=== PATIENT | male | born 1980 ===

== ENCOUNTER 2017-02-01 13:39 | Observation (INO) ==
[2017-02-01] MEDS ORDERED: ONDANSETRON 4 MG/2 ML VIAL IV PRN (17:16)
[2017-02-01] MEDS ORDERED: ZALEPLON 5 MG CAPSULE PO PRN (17:16)
[2017-02-01] MEDS ORDERED: ACETAMINOPHEN 325 MG TABLET PO PRN (17:16)
[2017-02-01] MEDS: FUROSEMIDE 40 MG/4 ML VIAL IV SCH (17:47)
[2017-02-01] MEDS: ENOXAPARIN 40 MG/0.4 ML SYRINGE SUBCUT SCH (17:47)
[2017-02-01 22:28] LABS: Troponin I Only 0.404 NG/ML (0.00-0.045)
[2017-02-02 03:06] LABS: Albumin 3.6 G/DL (3.4-5.0); Bilirubin,Total 1.2 MG/DL (0.2-1.0); Magnesium 1.8 MG/DL (1.8-2.4); Osmolality,Calculated 282.3 MOS/KG (273-304); Risk Ratio 4.41; Thyroid Stimulating Hormone 5.58 uIU/ml (0.358-3.74); Total Protein 7.1 G/DL (6.4-8.3)
[2017-02-02] MEDS: FUROSEMIDE 40 MG/4 ML VIAL IV SCH ×2 (09:15→17:10)
[2017-02-02] MEDS: PANTOPRAZOLE 40 MG TABLET PO SCH (09:18)
[2017-02-02] MEDS: ASPIRIN EC 81 MG TABLET PO SCH (09:18)
[2017-02-02] MEDS: LISINOPRIL 2.5 MG TABLET PO SCH (12:45)
[2017-02-02] MEDS: CARVEDILOL 3.125 MG TABLET PO SCH ×2 (12:49→21:29)
[2017-02-02] MEDS ORDERED: DIAZEPAM 5 MG TABLET PO ONE (15:31)
[2017-02-02] MEDS ORDERED: MAGNESIUM SULF RIDER 2 GM in PREMIX 1 EACH IV PRN (15:31)
[2017-02-02] MEDS ORDERED: diphenhydrAMINE CAP 25 MG CAPSULE PO ONE (15:31)
[2017-02-02] MEDS: ENOXAPARIN 40 MG/0.4 ML SYRINGE SUBCUT SCH (17:10)
[2017-02-02] MEDS: ATORVASTATIN 40 MG TABLET PO SCH (21:29)
[2017-02-03] MEDS: SODIUM CHLORIDE 0.9% 1,000 ML IV SCH ×2 (05:15→17:10)
[2017-02-03] MEDS: LEVOTHYROXINE 25 MCG TABLET PO SCH (06:02)
[2017-02-03 06:43] LABS: Basophils % 0.4 % (0.0-0.8); Eosinophils # 0.7 10*3/uL (0.0-0.87); Eosinophils % 5.9 % (0.00-10.9); Hematocrit 46.1 VOL% (42.0-52.0); Hemoglobin 15.9 GM/DL (14.0-18.0); Immature Granulocytes % 0.4 %; Immature Granulocytes Absolute 0.04 #; Lymphocytes # 2.4 10*3/uL (1.4-4.0); Lymphocytes % 21.7 % (21.2-54.2); Mean Corpuscular HGB Conc 34.5 GM/DL (32-36); Mean Corpuscular Hemoglobin 32 PG (27-34); Mean Corpuscular Volume 92.9 FL (87-102); Mean Platelet Volume 9.4 FL (9.6-12.0); Monocytes # 0.8 10*3/uL (0.11-0.8); Monocytes % 7.1 % (1.7-12.7); Neutrophils # 7.1 10*3/uL (1.4-7.4); Neutrophils % 64.5 % (38.7-73.9); Platelet Count 290 T/CUMM (130-400); Red Blood Count 4.96 MC/CUMM (3.8-5.5); Red Cell Distribution Width 13.3 % (9.3-17.3)
[2017-02-03 06:50] LABS: INR 1.1; PT Patient Result 11.3 SECS
[2017-02-03 07:22] LABS: Calcium 8.7 MG/DL (8.5-10.1); Osmolality,Calculated 279.5 MOS/KG (273-304); Potassium 3.7 MMOL/L (3.5-5.1)
[2017-02-03] MEDS ORDERED: LIDOCAINE 1% 20 ML VIAL ONE (07:56)
[2017-02-03] MEDS ORDERED: HEPARIN/NACL 0.9% 2 UNITS/ML 1,000 ML IV ONE (07:56)
[2017-02-03] MEDS: CARVEDILOL 3.125 MG TABLET PO SCH ×2 (08:01→20:07)
[2017-02-03] MEDS: PANTOPRAZOLE 40 MG TABLET PO SCH (08:01)
[2017-02-03] MEDS: LISINOPRIL 2.5 MG TABLET PO SCH (08:01)
[2017-02-03] MEDS: ASPIRIN EC 81 MG TABLET PO SCH (08:01)
[2017-02-03] MEDS ORDERED: MIDAZOLAM 2 MG/2 ML VIAL ONE (08:21)
[2017-02-03] MEDS ORDERED: HYDROmorphone 2 MG/1 ML VIAL ONE (08:21)
[2017-02-03] MEDS ORDERED: diphenhydrAMINE CAP 25 MG CAPSULE PO ONE (08:30)
[2017-02-03] MEDS ORDERED: DIAZEPAM 5 MG TABLET PO ONE (08:30)
[2017-02-03] MEDS: FUROSEMIDE 40 MG/4 ML VIAL IV SCH ×2 (09:50→17:01)
[2017-02-03] MEDS: ENOXAPARIN 40 MG/0.4 ML SYRINGE SUBCUT SCH (17:10)
[2017-02-03] MEDS: ATORVASTATIN 40 MG TABLET PO SCH (20:07)
[2017-02-04] MEDS: LEVOTHYROXINE 25 MCG TABLET PO SCH (05:49)
[2017-02-04] MEDS: SODIUM CHLORIDE 0.9% 1,000 ML IV SCH (05:50)
[2017-02-04 06:00] LABS: Calcium 6.1 MG/DL (8.5-10.1); Potassium 2.9 MMOL/L (3.5-5.1)
[2017-02-04] MEDS: POTASSIUM CHLORIDE RIDER 10 MEQ in PREMIX 1 EACH IV PRN ×2 (06:27→08:51)
[2017-02-04] MEDS ORDERED: POTASSIUM CHLORIDE 20 MEQ TABLET PO ONE ×2 (07:55→10:51)
[2017-02-04] MEDS: CARVEDILOL 3.125 MG TABLET PO SCH (08:50)
[2017-02-04] MEDS: LISINOPRIL 2.5 MG TABLET PO SCH (08:50)
[2017-02-04] MEDS: ASPIRIN EC 81 MG TABLET PO SCH (08:50)
[2017-02-04] MEDS: PANTOPRAZOLE 40 MG TABLET PO SCH (08:50)
[2017-02-04] MEDS ORDERED: FUROSEMIDE 40 MG TABLET PO SCH (09:00)
[2017-02-04 11:44] VITALS: BP 102/77
== END 2017-02-04 12:30 | disposition home or self-care (01) ==
LOC: EDUNIT# → N.EDINP 13:39 → N.ED 13:39 → INTOOBSV 15:14 → OBSVTOIN 15:16 → N.5E 17:00
PROVIDERS: ADMIT Family Medicine; ATTEND Family Medicine
PROC: CLCCHCL (ICD-10-PCS; 2017-02-03 09:15)

== ENCOUNTER 2017-05-31 05:58 | Inpatient (IN) ==
[2017-05-31] MEDS ORDERED: ceFAZolin 1,000 MG in SYRINGE 1 EACH IV ONE (06:00)
[2017-05-31] MEDS ORDERED: SODIUM CHLORIDE 0.9% 1,000 ML IV SCH (06:00)
[2017-05-31] MEDS ORDERED: DIAZEPAM 5 MG TABLET PO ONE (06:00)
[2017-05-31] MEDS ORDERED: diphenhydrAMINE CAP 25 MG CAPSULE PO ONE (06:00)
[2017-05-31] MEDS ORDERED: ceFAZolin 1,000 MG VIAL IRRIG ONE (06:00)
[2017-05-31] MEDS ORDERED: diphenhydrAMINE CAP 25 MG CAPSULE ONE (07:35)
[2017-05-31] MEDS ORDERED: DIAZEPAM 5 MG TABLET ONE (07:35)
[2017-05-31] MEDS: SODIUM CHLORIDE 0.9% 1,000 ML IV SCH (07:38)
[2017-05-31] MEDS ORDERED: ceFAZolin 1,000 MG VIAL ONE ×2 (08:58→11:33)
[2017-05-31] MEDS ORDERED: LIDOCAINE 1% 20 ML VIAL ONE (08:58)
[2017-05-31] MEDS ORDERED: TISSUE ADHESIVE 1 EACH APPLICATOR TOP ONE (10:48)
[2017-05-31] MEDS ORDERED: METOPROLOL TARTRATE 5 MG/5 ML VIAL IV ONE ×4 (12:58→13:40)
[2017-05-31 13:07] LABS: ABG HCO3 15.1 MMOL/L (20-26); ABG Oxygen Saturation 88.2 % (95-100); ABG PO2 76.3 MM HG (80-95); ABG TCO2 14.9 MMOL/L (23-27); Glucose Heart Surgery 78 MG/DL (74-106); Hematocrit Heart Surgery 47.1 PERCENT (42-52); Hemoglobin Heart Surgery 15.4 G/DL (14.0-18.0)
[2017-05-31] MEDS ORDERED: PROPOFOL 200 MG/20 ML VIAL IV ONE ×2 (13:57→15:52)
[2017-05-31] MEDS: PROPOFOL 1,000 MG/100 ML BOTTLE IV SCH ×4 (14:21→23:47)
[2017-05-31] MEDS ORDERED: PROPOFOL 1,000 MG/100 ML BOTTLE IV SCH (14:30)
[2017-05-31] MEDS ORDERED: DEXTROSE 50% 25 GM/50 ML VIAL IV ONE ×2 (15:14→15:45)
[2017-05-31] MEDS ORDERED: SEVOFLURANE 1 UNIT/15 MINUTE INH ONE (15:52)
[2017-05-31] MEDS ORDERED: MIDAZOLAM 2 MG/2 ML VIAL ONE ×2 (15:52→15:59)
[2017-05-31] MEDS ORDERED: ROCURONIUM 100 MG/10 ML VIAL IV ONE (15:52)
[2017-05-31] MEDS ORDERED: ONDANSETRON 4 MG/2 ML VIAL ONE (15:52)
[2017-05-31] MEDS ORDERED: ePHEDrine 50 MG/ML AMP ONE (15:54)
[2017-05-31] MEDS ORDERED: CALCIUM CHLORIDE 1,000 MG/10 ML VIAL IV ONE (15:54)
[2017-05-31] MEDS ORDERED: FUROSEMIDE 20 MG/2 ML VIAL ONE (15:54)
[2017-05-31] MEDS ORDERED: DEXAMETHASONE 10 MG/1 ML VIAL ONE (15:54)
[2017-05-31] MEDS ORDERED: PHENYLEPHRINE 10 MG/1 ML VIAL IV ONE (15:54)
[2017-05-31] MEDS ORDERED: SODIUM CHLORIDE 0.9% 250 ML IV ONE (15:55)
[2017-05-31] MEDS ORDERED: ALBUTEROL INHALER 8 GM INH ONE (15:55)
[2017-05-31 16:07] LABS: Apearance,Urine Slightly Hazy (Clear); Bacteria,Urine Occasional /HPF (Few); Bilirubin,Urine Negative (Negative); Blood, Urine Small mg/dL (Negative); Glucose,Urine (UA) Negative (Negative); Ketones,Urine Negative (Negative); Mucus,Urine Occasional /LPF (Occasional); Nitrite,Urine Negative (Negative); Protein,Urine 100 MG/DL; RBC,Urine 3 /HPF (0-4); Sperm,Urine Occasional /HPF (Negative); Squamous Epithelial Cell,Urine Occasional /HPF (0-10); Urine Color Dark yellow (Yellow); WBC,Urine 2 /HPF (0-6)
[2017-05-31] MEDS: DEXTROSE 5% 1,000 ML IV SCH (16:48)
[2017-05-31] MEDS: CARVEDILOL 3.125 MG TABLET PO SCH (21:24)
[2017-05-31] MEDS: ATORVASTATIN 40 MG TABLET PO SCH (21:25)
[2017-06-01 04:44] LABS: ABG Base Excess -0.8 MMOL/L (-2.5-2.5); ABG HCO3 23.8 MMOL/L (20-26); ABG Oxygen Saturation 99.8 % (95-100); ABG PH 7.458 (7.35-7.45); ABG TCO2 18.6 MMOL/L (23-27); Allen Test Positive; Pt O2 Delivery Device Ventilator
[2017-06-01 05:48] LABS: Basophils % 0.1 % (0.0-0.8); Hematocrit 42.3 VOL% (42.0-52.0); Hemoglobin 14.5 GM/DL (14.0-18.0); Immature Granulocytes % 0.6 %; Immature Granulocytes Absolute 0.07 #; Lymphocytes # 0.5 10*3/uL (1.4-4.0); Lymphocytes % 3.8 % (21.2-54.2); Mean Corpuscular HGB Conc 34.3 GM/DL (32-36); Mean Corpuscular Hemoglobin 32 PG (27-34); Mean Platelet Volume 9.8 FL (9.6-12.0); Monocytes # 0.4 10*3/uL (0.11-0.8); Monocytes % 3.1 % (1.7-12.7); Neutrophils # 11.3 10*3/uL (1.4-7.4); Neutrophils % 92.4 % (38.7-73.9); Platelet Count 173 T/CUMM (130-400); Red Blood Count 4.55 MC/CUMM (3.8-5.5); White Blood Count 12.2 T/CUMM (4-12)
[2017-06-01 06:19] LABS: Calcium 8.4 MG/DL (8.5-10.1); Osmolality,Calculated 282.4 MOS/KG (273-304); Potassium 3.9 MMOL/L (3.5-5.1)
[2017-06-01] MEDS: PROPOFOL 1,000 MG/100 ML BOTTLE IV SCH ×3 (06:29→20:27)
[2017-06-01] MEDS ORDERED: MAGNESIUM SULF RIDER 2 GM in PREMIX 1 EACH IV PRN (06:35)
[2017-06-01] MEDS: LEVOTHYROXINE 25 MCG TABLET PO SCH (06:40)
[2017-06-01 06:49] LABS: Hypochromasia Slight; Lymphocytes 1 % (20-55); Platelet Estimate Normal; Segmented Neutrophils 97 % (50-85); Total Cells Counted 100
[2017-06-01 06:50] LABS: Giant Platelets Few; Ovalocytes Slight
[2017-06-01] MEDS: SODIUM CHLORIDE 0.9% 1,000 ML IV SCH (07:06)
[2017-06-01] MEDS ORDERED: EPINEPHrine 1 MG/10 ML SYRINGE ONE (07:26)
[2017-06-01] MEDS ORDERED: LISINOPRIL 2.5 MG TABLET PO SCH (09:00)
[2017-06-01] MEDS: POTASSIUM CHLORIDE 20 MEQ TABLET PO SCH (09:25)
[2017-06-01] MEDS: SPIRONOLACTONE 25 MG TABLET PO SCH (09:25)
[2017-06-01] MEDS: ASPIRIN EC 81 MG TABLET PO SCH (09:25)
[2017-06-01] MEDS: FUROSEMIDE 40 MG TABLET PO SCH (09:25)
[2017-06-01] MEDS: CARVEDILOL 3.125 MG TABLET PO SCH (09:25)
[2017-06-01] MEDS ORDERED: SODIUM CHLORIDE 0.45% 500 ML IV ONE (13:52)
[2017-06-01] MEDS: DEXTROSE 5% 1,000 ML IV SCH (13:59)
[2017-06-01] MEDS: MIDAZOLAM 100 MG in SODIUM CHLORIDE 0.9% 80 ML IV SCH ×2 (16:33→18:13)
[2017-06-01] MEDS ORDERED: DOBUTamine 500 MG/250 ML PREMIX IV SCH (19:45)
[2017-06-01] MEDS: ATORVASTATIN 40 MG TABLET PO SCH (20:27)
[2017-06-02 04:11] LABS: ABG Base Excess 0.4 MMOL/L (-2.5-2.5); ABG Oxygen Saturation 96.2 % (95-100); ABG PCO2 28.3 MM HG (35-48); ABG PH 7.509 (7.35-7.45); ABG TCO2 22.9 MMOL/L (23-27); Allen Test Positive; Pt O2 Delivery Device Ventilator
[2017-06-02 05:07] LABS: Basophils % 0.1 % (0.0-0.8); Hematocrit 44.1 VOL% (42.0-52.0); Hemoglobin 14.7 GM/DL (14.0-18.0); Immature Granulocytes % 0.9 %; Immature Granulocytes Absolute 0.15 #; Lymphocytes # 0.6 10*3/uL (1.4-4.0); Lymphocytes % 3.6 % (21.2-54.2); Mean Corpuscular HGB Conc 33.3 GM/DL (32-36); Mean Corpuscular Hemoglobin 32 PG (27-34); Mean Corpuscular Volume 95.9 FL (87-102); Mean Platelet Volume 10.4 FL (9.6-12.0); Monocytes # 0.7 10*3/uL (0.11-0.8); Monocytes % 4.1 % (1.7-12.7); Neutrophils # 15.8 10*3/uL (1.4-7.4); Neutrophils % 91.3 % (38.7-73.9); Platelet Count 175 T/CUMM (130-400); Red Cell Distribution Width 15.5 % (9.3-17.3); White Blood Count 17.3 T/CUMM (4-12)
[2017-06-02 05:27] LABS: Band Neutrophils 1 % (0-10); Burr Cells Slight; Hypochromasia Slight; Lymphocytes 5 % (20-55); Ovalocytes Slight; Platelet Estimate Normal; Segmented Neutrophils 93 % (50-85); Total Cells Counted 100
[2017-06-02 05:28] LABS: Giant Platelets Few
[2017-06-02 05:46] LABS: Calcium 7.9 MG/DL (8.5-10.1); Osmolality,Calculated 289.1 MOS/KG (273-304); Potassium 3.9 MMOL/L (3.5-5.1)
[2017-06-02] MEDS: LEVOTHYROXINE 25 MCG TABLET PO SCH (05:54)
[2017-06-02] MEDS: SPIRONOLACTONE 25 MG TABLET PO SCH (09:36)
[2017-06-02] MEDS: ASPIRIN EC 81 MG TABLET PO SCH (09:37)
[2017-06-02] MEDS: FUROSEMIDE 40 MG TABLET PO SCH (09:38)
[2017-06-02] MEDS: POTASSIUM CHLORIDE 20 MEQ TABLET PO SCH (09:38)
[2017-06-02] MEDS: DEXTROSE 5% 1,000 ML IV SCH (09:56)
[2017-06-02] MEDS: SODIUM CHLORIDE 0.45% 1,000 ML IV SCH ×2 (10:00)
[2017-06-02] MEDS ORDERED: DOBUTamine 500 MG/250 ML PREMIX IV SCH (10:46)
[2017-06-02] MEDS: LEVOFLOXACIN INJ 500 MG in PREMIX 1 EACH IV SCH (12:04)
[2017-06-02] MEDS: ALBUTEROL 0.63 MG/3 ML NEB RESP TX SCH ×2 (13:58→19:44)
[2017-06-02 14:14] LABS: Apearance,Urine CLEAR (Clear); Bilirubin,Urine Negative (Negative); Blood, Urine Negative (Negative); Glucose,Urine (UA) Negative (Negative); Ketones,Urine Negative (Negative); Mucus,Urine Occasional /LPF (Occasional); Nitrite,Urine Negative (Negative); Protein,Urine Negative; RBC,Urine 2 /HPF (0-4); Squamous Epithelial Cell,Urine Occasional /HPF (0-10); Urine Color Yellow (Yellow); Urine Specific Gravity 1.011 (1.001-1.035); WBC,Urine <1 /HPF (0-6)
[2017-06-02] MEDS ORDERED: INFLUENZA VIRUS VACCINE 0.5 ML SYRINGE IM ONE (16:37)
[2017-06-02] MEDS: ATORVASTATIN 40 MG TABLET PO SCH (21:19)
[2017-06-03] MEDS: ALBUTEROL 0.63 MG/3 ML NEB RESP TX SCH ×4 (01:23→19:11)
[2017-06-03 02:50] LABS: Basophils % 0.1 % (0.0-0.8); Hemoglobin 15.5 GM/DL (14.0-18.0); Immature Granulocytes % 1.4 %; Immature Granulocytes Absolute 0.21 #; Lymphocytes # 0.8 10*3/uL (1.4-4.0); Lymphocytes % 5.3 % (21.2-54.2); Mean Corpuscular HGB Conc 34.4 GM/DL (32-36); Mean Corpuscular Hemoglobin 32 PG (27-34); Mean Corpuscular Volume 92.6 FL (87-102); Mean Platelet Volume 10.3 FL (9.6-12.0); Monocytes # 0.9 10*3/uL (0.11-0.8); Monocytes % 6.1 % (1.7-12.7); NRBC # 0.02 10*3/uL; Neutrophils # 12.6 10*3/uL (1.4-7.4); Neutrophils % 87.1 % (38.7-73.9); Platelet Count 190 T/CUMM (130-400); Red Blood Count 4.86 MC/CUMM (3.8-5.5); Red Cell Distribution Width 15.4 % (9.3-17.3); White Blood Count 14.5 T/CUMM (4-12)
[2017-06-03 04:47] LABS: Osmolality,Calculated 281.7 MOS/KG (273-304)
[2017-06-03] MEDS: LEVOTHYROXINE 25 MCG TABLET PO SCH (05:59)
[2017-06-03] MEDS: DEXTROSE 5% 1,000 ML IV SCH (06:03)
[2017-06-03] MEDS: ASPIRIN EC 81 MG TABLET PO SCH (09:29)
[2017-06-03] MEDS: FUROSEMIDE 40 MG TABLET PO SCH (09:29)
[2017-06-03] MEDS: MAGNESIUM CHLORIDE 64 MG TABLET PO SCH (09:29)
[2017-06-03] MEDS: SPIRONOLACTONE 25 MG TABLET PO SCH (09:29)
[2017-06-03] MEDS: CARVEDILOL 3.125 MG TABLET PO SCH ×2 (09:29→21:37)
[2017-06-03] MEDS: POTASSIUM CHLORIDE 20 MEQ TABLET PO SCH (09:29)
[2017-06-03] MEDS: LEVOFLOXACIN INJ 500 MG in PREMIX 1 EACH IV SCH (11:34)
[2017-06-03] MEDS ORDERED: INFLUENZA VIRUS VACCINE 0.5 ML SYRINGE IM ONE (18:00)
[2017-06-03] MEDS: ATORVASTATIN 40 MG TABLET PO SCH (21:37)
[2017-06-04] MEDS: DEXTROSE 5% 1,000 ML IV SCH (00:42)
[2017-06-04] MEDS: ALBUTEROL 0.63 MG/3 ML NEB RESP TX SCH ×2 (01:31→06:48)
[2017-06-04] MEDS: LEVOTHYROXINE 25 MCG TABLET PO SCH (06:05)
[2017-06-04 06:49] LABS: Basophils % 0.1 % (0.0-0.8); Eosinophils % 0.2 % (0.00-10.9); Hematocrit 45.5 VOL% (42.0-52.0); Hemoglobin 14.9 GM/DL (14.0-18.0); Immature Granulocytes % 0.9 %; Lymphocytes # 1.6 10*3/uL (1.4-4.0); Lymphocytes % 15.2 % (21.2-54.2); Mean Corpuscular HGB Conc 32.7 GM/DL (32-36); Mean Corpuscular Hemoglobin 31 PG (27-34); Mean Corpuscular Volume 94.8 FL (87-102); Mean Platelet Volume 9.9 FL (9.6-12.0); Monocytes % 9.5 % (1.7-12.7); Neutrophils # 7.8 10*3/uL (1.4-7.4); Neutrophils % 74.1 % (38.7-73.9); Platelet Count 175 T/CUMM (130-400); Red Cell Distribution Width 15.5 % (9.3-17.3); White Blood Count 10.6 T/CUMM (4-12)
[2017-06-04 07:22] LABS: Calcium 8.2 MG/DL (8.5-10.1)
[2017-06-04 08:28] VITALS: BP 110/72
[2017-06-04] MEDS: ASPIRIN EC 81 MG TABLET PO SCH (09:16)
[2017-06-04] MEDS: SPIRONOLACTONE 25 MG TABLET PO SCH (09:16)
[2017-06-04] MEDS: FUROSEMIDE 40 MG TABLET PO SCH (09:16)
[2017-06-04] MEDS: MAGNESIUM CHLORIDE 64 MG TABLET PO SCH (09:16)
[2017-06-04] MEDS: POTASSIUM CHLORIDE 20 MEQ TABLET PO SCH (09:16)
[2017-06-04] MEDS: CARVEDILOL 3.125 MG TABLET PO SCH (09:16)
== END 2017-06-04 12:20 | disposition home or self-care (01) | DRG 243 ==
LOC: N.CL 05:58 → N.ICU 12:34 → N.TELES 06-02 17:23
PROVIDERS: ADMIT Internal Medicine Cardiovascular Disease; ATTEND Internal Medicine Cardiovascular Disease
PROC: CLDCICD (2017-05-31 09:15)

== ENCOUNTER 2017-08-02 19:19 | Inpatient (IN) ==
[2017-08-02 21:43] LABS: Basophils % 0.5 % (0.0-0.8); Eosinophils # 0.3 10*3/uL (0.0-0.87); Eosinophils % 3.4 % (0.00-10.9); Hematocrit 43.6 VOL% (42.0-52.0); Hemoglobin 14.4 GM/DL (14.0-18.0); Immature Granulocytes % 0.4 %; Immature Granulocytes Absolute 0.03 #; Lymphocytes # 1.8 10*3/uL (1.4-4.0); Lymphocytes % 21.9 % (21.2-54.2); Mean Corpuscular Hemoglobin 29 PG (27-34); Mean Platelet Volume 9.7 FL (9.6-12.0); Monocytes # 0.5 10*3/uL (0.11-0.8); Monocytes % 6.1 % (1.7-12.7); Neutrophils # 5.6 10*3/uL (1.4-7.4); Neutrophils % 67.7 % (38.7-73.9); Platelet Count 283 T/CUMM (130-400); Red Cell Distribution Width 15.9 % (9.3-17.3); White Blood Count 8.3 T/CUMM (4-12)
[2017-08-02 22:08] LABS: INR 1.4; PT Patient Result 14.7 SECS; Partial Thromboplastin Time 26.1 SECS (0-40)
[2017-08-02 22:19] LABS: Alanine Aminotransferase 25 U/L (16-61); Alkaline Phosphatase 126 U/L (45-117); Aspartate Amino Transferase 51 U/L (0-37); Blood Urea Nitrogen 22 MG/DL (7-18); Calcium 8.9 MG/DL (8.5-10.1); Glucose 93 MG/DL (74-106); Potassium 4.5 MMOL/L (3.5-5.1); Sodium 136 MMOL/L (136-145); Total Protein 6.6 G/DL (6.4-8.3)
[2017-08-02 23:18] LABS: Barbiturates Screen,Urine Negative (Negative); Benzodiazepines Screen,Urine Negative (Negative); Cannabinoid Screen,Urine Negative (Negative); Opiate Screen,Urine Negative (Negative); Phencyclidine Screen,Urine Negative (Negative)
[2017-08-03 03:47] LABS: Calcium 8.7 MG/DL (8.5-10.1)
[2017-08-03 04:30] LABS: White Blood Count 8.5 T/CUMM (4-12)
[2017-08-03 04:31] LABS: Basophils # 0.1 10*3/uL (0.0-0.2); Basophils % 0.6 % (0.0-0.8); Eosinophils # 0.1 10*3/uL (0.0-0.87); Eosinophils % 1.7 % (0.00-10.9); Hematocrit 40.6 VOL% (42.0-52.0); Hemoglobin 13.9 GM/DL (14.0-18.0); Immature Granulocytes % 0.2 %; Immature Granulocytes Absolute 0.02 #; Large Unclassified Cells % 0.2 % (0.0-4.0); Lymphocytes # 1.8 10*3/uL (1.4-4.0); Lymphocytes % 20.8 % (21.2-54.2); Mean Corpuscular HGB Conc 34.2 GM/DL (32-36); Mean Corpuscular Hemoglobin 30 PG (27-34); Mean Corpuscular Volume 87.3 FL (87-102); Mean Platelet Volume 9.4 FL (9.6-12.0); Monocytes # 0.5 10*3/uL (0.11-0.8); Monocytes % 5.9 % (1.7-12.7); Neutrophils % 70.8 % (38.7-73.9); Platelet Count 268 T/CUMM (130-400); Red Blood Count 4.65 MC/CUMM (3.8-5.5)
[2017-08-04 05:39] LABS: Basophils % 0.5 % (0.0-0.8); Eosinophils # 0.3 10*3/uL (0.0-0.87); Eosinophils % 4.1 % (0.00-10.9); Hemoglobin 13.7 GM/DL (14.0-18.0); Immature Granulocytes % 0.3 %; Immature Granulocytes Absolute 0.02 #; Lymphocytes # 2.2 10*3/uL (1.4-4.0); Lymphocytes % 28.2 % (21.2-54.2); Mean Corpuscular HGB Conc 33.4 GM/DL (32-36); Mean Corpuscular Hemoglobin 29 PG (27-34); Mean Corpuscular Volume 87.8 FL (87-102); Mean Platelet Volume 9.7 FL (9.6-12.0); Monocytes # 0.4 10*3/uL (0.11-0.8); Monocytes % 5.2 % (1.7-12.7); Neutrophils # 4.9 10*3/uL (1.4-7.4); Neutrophils % 61.7 % (38.7-73.9); Platelet Count 259 T/CUMM (130-400); Red Blood Count 4.67 MC/CUMM (3.8-5.5); White Blood Count 7.9 T/CUMM (4-12)
[2017-08-04 06:11] LABS: Calcium 8.3 MG/DL (8.5-10.1); Osmolality,Calculated 275.1 MOS/KG (273-304); Potassium 3.7 MMOL/L (3.5-5.1)
[2017-08-05 06:11] LABS: Free T4 (Free Thyroxine) 1.38 NG/DL (0.76-1.46); Thyroid Stimulating Hormone 5.98 uIU/ml (0.358-3.74)
[2017-08-05 06:18] LABS: Albumin 2.8 G/DL (3.4-5.0); Bilirubin,Total 2.4 MG/DL (0.2-1.0); Calcium 8.3 MG/DL (8.5-10.1); Osmolality,Calculated 273.4 MOS/KG (273-304); Potassium 4.1 MMOL/L (3.5-5.1); Total Protein 5.9 G/DL (6.4-8.3)
[2017-08-06 04:57] LABS: Basophils % 0.5 % (0.0-0.8); Eosinophils # 0.3 10*3/uL (0.0-0.87); Eosinophils % 4.1 % (0.00-10.9); Hematocrit 41.6 VOL% (42.0-52.0); Hemoglobin 13.7 GM/DL (14.0-18.0); Immature Granulocytes % 0.3 %; Immature Granulocytes Absolute 0.02 #; Lymphocytes % 26.3 % (21.2-54.2); Mean Corpuscular HGB Conc 32.9 GM/DL (32-36); Mean Corpuscular Hemoglobin 29 PG (27-34); Mean Corpuscular Volume 88.9 FL (87-102); Mean Platelet Volume 9.6 FL (9.6-12.0); Monocytes # 0.6 10*3/uL (0.11-0.8); Neutrophils # 4.6 10*3/uL (1.4-7.4); Neutrophils % 60.8 % (38.7-73.9); Platelet Count 271 T/CUMM (130-400); Red Blood Count 4.68 MC/CUMM (3.8-5.5); Red Cell Distribution Width 16.1 % (9.3-17.3); White Blood Count 7.6 T/CUMM (4-12)
[2017-08-06 05:23] LABS: Calcium 8.6 MG/DL (8.5-10.1); Osmolality,Calculated 276.2 MOS/KG (273-304); Potassium 4.3 MMOL/L (3.5-5.1)
[2017-08-07 05:01] LABS: Calcium 8.6 MG/DL (8.5-10.1); Osmolality,Calculated 275.2 MOS/KG (273-304)
[2017-08-07 11:05] VITALS: BP 134/85
== END 2017-08-07 13:50 | disposition home or self-care (01) | DRG 194 ==
LOC: N.ED 19:19 → N.EDINP 23:47 → N.TELEN 08-03 00:06
PROVIDERS: ADMIT Internal Medicine; ATTEND Internal Medicine

== ENCOUNTER 2018-02-04 15:31 | Observation (INO) ==
[2018-02-04] MEDS ORDERED: DEXTROSE 50% 25 GM/50 ML VIAL IV PRN (17:34)
[2018-02-04] MEDS ORDERED: GLUCAGON 1 MG VIAL IM PRN (17:34)
[2018-02-04] MEDS ORDERED: ONDANSETRON 4 MG/2 ML VIAL IV PRN (18:36)
[2018-02-04] MEDS ORDERED: NICOTINE 21 MG/24 HR PATCH TRANSDERM PRN (18:36)
[2018-02-04] MEDS ORDERED: ACETAMINOPHEN 325 MG TABLET PO PRN (18:36)
[2018-02-04] MEDS ORDERED: MAGNESIUM SULF RIDER 4 GM in PREMIX 1 EACH IV PRN (18:45)
[2018-02-04] MEDS ORDERED: MAGNESIUM SULF RIDER 2 GM in PREMIX 1 EACH IV PRN (18:45)
[2018-02-04] MEDS ORDERED: FUROSEMIDE 40 MG/4 ML VIAL IV ONE (19:00)
[2018-02-04 19:30] LABS: Calcium 8.5 MG/DL (8.5-10.1); Osmolality,Calculated 268.8 MOS/KG (273-304); Potassium 3.1 MMOL/L (3.5-5.1)
[2018-02-04] MEDS: INSULIN REGULAR 100 UNIT/ML SUBCUT SCH (21:21)
[2018-02-04] MEDS: CARVEDILOL 3.125 MG TABLET PO SCH (21:22)
[2018-02-04] MEDS: ATORVASTATIN 40 MG TABLET PO SCH (21:22)
[2018-02-04] MEDS ORDERED: MELATONIN 3 MG TABLET PO SCH ×2 (23:00)
[2018-02-04] MEDS: BENZONATATE 100 MG CAPSULE PO SCH (23:04)
[2018-02-04] MEDS: POTASSIUM CHLORIDE RIDER 10 MEQ in PREMIX 1 EACH IV PRN (23:25)
[2018-02-05] MEDS: POTASSIUM CHLORIDE RIDER 10 MEQ in PREMIX 1 EACH IV PRN ×3 (00:45→02:48)
[2018-02-05 04:34] LABS: Basophils % 0.4 % (0.0-0.8); Eosinophils # 0.1 10*3/uL (0.0-0.87); Eosinophils % 1.4 % (0.00-10.9); Hematocrit 33.2 VOL% (42.0-52.0); Hemoglobin 9.9 GM/DL (14.0-18.0); Immature Granulocytes % 0.5 %; Immature Granulocytes Absolute 0.04 #; Lymphocytes % 12.4 % (21.2-54.2); Mean Corpuscular HGB Conc 29.8 GM/DL (32-36); Mean Corpuscular Hemoglobin 24 PG (27-34); Monocytes # 0.5 10*3/uL (0.11-0.8); Monocytes % 6.5 % (1.7-12.7); NRBC # 0.02 10*3/uL; Neutrophils # 6.3 10*3/uL (1.4-7.4); Neutrophils % 78.8 % (38.7-73.9); Platelet Count 284 T/CUMM (130-400); Red Blood Count 4.15 MC/CUMM (3.8-5.5); Red Cell Distribution Width 18.2 % (9.3-17.3)
[2018-02-05 04:58] LABS: Calcium 8.6 MG/DL (8.5-10.1); Osmolality,Calculated 264.1 MOS/KG (273-304); Potassium 3.3 MMOL/L (3.5-5.1)
[2018-02-05] MEDS ORDERED: LEVOTHYROXINE 25 MCG TABLET PO SCH (06:00)
[2018-02-05] MEDS ORDERED: ASPIRIN EC 81 MG TABLET PO SCH (09:00)
[2018-02-05] MEDS ORDERED: PANTOPRAZOLE 40 MG TABLET PO SCH (09:00)
[2018-02-05] MEDS ORDERED: SPIRONOLACTONE 25 MG TABLET PO SCH (09:00)
[2018-02-05] MEDS: INSULIN REGULAR 100 UNIT/ML SUBCUT SCH ×3 (09:04→16:50)
[2018-02-05] MEDS: FUROSEMIDE 40 MG/4 ML VIAL IV SCH ×2 (09:05→16:49)
[2018-02-05] MEDS: ATORVASTATIN 40 MG TABLET PO SCH (09:06)
[2018-02-05] MEDS: BENZONATATE 100 MG CAPSULE PO SCH (09:06)
[2018-02-05] MEDS: CARVEDILOL 3.125 MG TABLET PO SCH ×2 (09:06→16:50)
[2018-02-05 15:54] VITALS: BP 102/71
[2018-02-05] MEDS ORDERED: RIVAROXABAN 20 MG TABLET PO SCH (17:00)
== END 2018-02-05 17:32 | disposition home or self-care (01) ==
LOC: INTOOBSV 17:07 → SUATTDRO 17:07 → N.TELES 17:07
PROVIDERS: ADMIT Internal Medicine; ATTEND Internal Medicine

== ENCOUNTER 2018-03-05 10:21 | Inpatient (IN) ==
[2018-03-05] MEDS ORDERED: ALBUTEROL/IPRATROPIUM 3 ML NEB RESP TX STA (10:50)
[2018-03-05] MEDS ORDERED: FUROSEMIDE 100 MG/10 ML VIAL IV STA (10:50)
[2018-03-05 11:39] LABS: INR 1.3; PT Patient Result 14.4 SECS
[2018-03-05] MEDS ORDERED: diphenhydrAMINE CAP 25 MG CAPSULE PO PRN (11:54)
[2018-03-05] MEDS ORDERED: MAGNESIUM SULF RIDER 4 GM in PREMIX 1 EACH IV PRN (11:54)
[2018-03-05] MEDS ORDERED: BISACODYL 5 MG TABLET PO PRN (11:54)
[2018-03-05] MEDS ORDERED: ONDANSETRON 4 MG/2 ML VIAL IV PRN (11:54)
[2018-03-05] MEDS ORDERED: DOCUSATE SODIUM 100 MG CAPSULE PO PRN (11:54)
[2018-03-05] MEDS ORDERED: MAGNESIUM SULF RIDER 2 GM in PREMIX 1 EACH IV PRN (11:54)
[2018-03-05] MEDS ORDERED: ZALEPLON 5 MG CAPSULE PO PRN (11:54)
[2018-03-05] MEDS ORDERED: ENOXAPARIN 40 MG/0.4 ML SYRINGE SUBCUT SCH (12:00)
[2018-03-05] MEDS: PANTOPRAZOLE 40 MG TABLET PO SCH (14:29)
[2018-03-05] MEDS ORDERED: PNEUMOCOCCAL VACCINE (23 VALENT) 0.5 ML VIAL IM ONE (14:30)
[2018-03-05] MEDS ORDERED: INFLUENZA VIRUS VACCINE 0.5 ML SYRINGE IM ONE (14:30)
[2018-03-05] MEDS: RIVAROXABAN 20 MG TABLET PO SCH (16:58)
[2018-03-05] MEDS: FUROSEMIDE 40 MG/4 ML VIAL IV SCH ×2 (16:58→21:09)
[2018-03-05 18:51] LABS: CKMB % 1.3 %
[2018-03-05 18:53] LABS: Troponin I 2.91 NG/ML (0.00-0.045)
[2018-03-05] MEDS: POTASSIUM CHLORIDE RIDER 10 MEQ in PREMIX 1 EACH IV PRN (19:29)
[2018-03-05] MEDS ORDERED: CARVEDILOL 3.125 MG TABLET PO SCH (21:00)
[2018-03-05] MEDS: ATORVASTATIN 40 MG TABLET PO SCH (21:09)
[2018-03-05] MEDS: POTASSIUM CHLORIDE 20 MEQ TABLET PO PRN (21:12)
[2018-03-05 23:30] LABS: CKMB % 1.2 %
[2018-03-05 23:32] LABS: Troponin I 2.91 NG/ML (0.00-0.045)
[2018-03-05] MEDS ORDERED: LORazepam 2 MG/1 ML VIAL ONE (23:48)
[2018-03-05] MEDS ORDERED: MIDAZOLAM 10 MG/2 ML VIAL ONE (23:58)
[2018-03-06] MEDS ORDERED: ETOMIDATE 20 MG/10 ML VIAL IV ONE (00:18)
[2018-03-06] MEDS ORDERED: ROCURONIUM 100 MG/10 ML VIAL IV ONE (00:18)
[2018-03-06] MEDS ORDERED: NOREPINEPHRINE 4 MG/4 ML VIAL IV ONE (00:18)
[2018-03-06] MEDS: NOREPINEPHRINE 8 MG in SODIUM CHLORIDE 0.9% 242 ML IV PRN ×2 (00:20→11:43)
[2018-03-06 00:47] LABS: ABG HCO3 27.2 MMOL/L (20-26); ABG Oxygen Saturation 99.5 % (95-100); ABG PCO2 31.6 MM HG (35-48); ABG PH 7.552 (7.35-7.45); ABG TCO2 28.1 MMOL/L (23-27)
[2018-03-06 00:50] LABS: Basophils % 0.4 % (0.0-0.8); Eosinophils # 0.3 10*3/uL (0.0-0.87); Eosinophils % 2.4 % (0.00-10.9); Hemoglobin 10.8 GM/DL (14.0-18.0); Immature Granulocytes % 1.3 %; Immature Granulocytes Absolute 0.14 #; Lymphocytes # 1.1 10*3/uL (1.4-4.0); Lymphocytes % 9.8 % (21.2-54.2); Mean Corpuscular HGB Conc 28.6 GM/DL (32-36); Mean Corpuscular Hemoglobin 22 PG (27-34); Mean Corpuscular Volume 76.9 FL (87-102); Mean Platelet Volume 9.5 FL (9.6-12.0); Monocytes % 9.3 % (1.7-12.7); NRBC # 0.04 10*3/uL; Neutrophils # 8.3 10*3/uL (1.4-7.4); Neutrophils % 76.8 % (38.7-73.9); Platelet Count 315 T/CUMM (130-400); Red Cell Distribution Width 20.7 % (9.3-17.3); White Blood Count 10.7 T/CUMM (4-12)
[2018-03-06 00:57] LABS: Hematocrit 37.7 VOL% (42.0-52.0)
[2018-03-06 01:12] LABS: Albumin 2.4 G/DL (3.4-5.0); Bilirubin,Total 3.6 MG/DL (0.2-1.0); Calcium 8.1 MG/DL (8.5-10.1); Osmolality,Calculated 257.5 MOS/KG (273-304); Potassium 2.9 MMOL/L (3.5-5.1); Total Protein 7.1 G/DL (6.4-8.3)
[2018-03-06] MEDS: POTASSIUM CHLORIDE RIDER 20 MEQ in PREMIX 1 EACH IV PRN ×4 (01:49→21:16)
[2018-03-06] MEDS: PROPOFOL 1,000 MG/100 ML BOTTLE IV SCH ×5 (02:21→23:35)
[2018-03-06] MEDS ORDERED: LORazepam 2 MG/1 ML VIAL IV ONE (03:44)
[2018-03-06 04:41] LABS: ABG Base Excess 11.3 MMOL/L (-2.5-2.5); ABG HCO3 35.1 MMOL/L (20-26); ABG PCO2 29.9 MM HG (35-48); ABG TCO2 29.6 MMOL/L (23-27); Allen Test Positive; Pt O2 Delivery Device Ventilator
[2018-03-06 04:43] LABS: ABG PH 7.647 (7.35-7.45)
[2018-03-06] MEDS: LEVOTHYROXINE 25 MCG TABLET PO SCH (06:23)
[2018-03-06 06:54] LABS: Basophils % 0.5 % (0.0-0.8); Eosinophils # 0.1 10*3/uL (0.0-0.87); Eosinophils % 1.4 % (0.00-10.9); Hematocrit 31.6 VOL% (42.0-52.0); Hemoglobin 9.5 GM/DL (14.0-18.0); Immature Granulocytes % 0.6 %; Immature Granulocytes Absolute 0.05 #; Lymphocytes # 1.1 10*3/uL (1.4-4.0); Mean Corpuscular HGB Conc 30.1 GM/DL (32-36); Mean Corpuscular Hemoglobin 22 PG (27-34); Monocytes # 0.8 10*3/uL (0.11-0.8); Monocytes % 9.3 % (1.7-12.7); NRBC # 0.04 10*3/uL; Neutrophils # 6.8 10*3/uL (1.4-7.4); Neutrophils % 76.2 % (38.7-73.9); Platelet Count 301 T/CUMM (130-400); Red Blood Count 4.33 MC/CUMM (3.8-5.5); Red Cell Distribution Width 20.1 % (9.3-17.3); White Blood Count 8.9 T/CUMM (4-12)
[2018-03-06 07:15] LABS: Blood Urea Nitrogen 40 MG/DL (7-18); Calcium 8.1 MG/DL (8.5-10.1); Glucose 87 MG/DL (74-106); HDL Cholesterol 27 MG/DL (40-60); Osmolality,Calculated 270.7 MOS/KG (273-304); Potassium 2.8 MMOL/L (3.5-5.1); Risk Ratio 1.85; Sodium 131 MMOL/L (136-145); Triglycerides 66 MG/DL (2-150); VLDL CHOLESTEROL 13.2 MG/DL
[2018-03-06 07:26] LABS: Cholesterol < 50 MG/DL (50-200)
[2018-03-06 07:53] LABS: Apearance,Urine CLOUDY (Clear); Bilirubin,Urine Small mg/dL (Negative); Blood, Urine Negative (Negative); Glucose,Urine (UA) Negative (Negative); Hyaline Casts,Urine 56 /LPF (0-3); Ketones,Urine Negative (Negative); Mucus,Urine Few /LPF (Occasional); Nitrite,Urine Negative (Negative); Protein,Urine 100 MG/DL; RBC,Urine 59 /HPF (0-4); Sperm,Urine Many /HPF (Negative); Squamous Epithelial Cell,Urine Occasional /HPF (0-10); Urine Color Amber (Yellow); Urine Specific Gravity 1.015 (1.001-1.035); WBC,Urine 25 /HPF (0-6)
[2018-03-06] MEDS ORDERED: SPIRONOLACTONE 25 MG TABLET PO SCH (09:00)
[2018-03-06] MEDS ORDERED: ASPIRIN EC 81 MG TABLET PO SCH (09:00)
[2018-03-06] MEDS ORDERED: POTASSIUM CHLORIDE 10 MEQ TABLET PO SCH (09:00)
[2018-03-06] MEDS ORDERED: DOCUSATE SODIUM 100 MG/10 ML UDCUP PO PRN (09:30)
[2018-03-06] MEDS: metOLazone 5 MG TABLET PO SCH (11:00)
[2018-03-06] MEDS: guaiFENesin/DM ER 600-30 MG TABLET PO PRN (11:38)
[2018-03-06] MEDS: ASPIRIN CHEW 81 MG TABLET PO SCH (11:39)
[2018-03-06] MEDS: LANSOPRAZOLE ODT 30 MG TABLET PER TUBE SCH (11:39)
[2018-03-06] MEDS: ATORVASTATIN 40 MG TABLET PO SCH ×2 (11:39→21:16)
[2018-03-06] MEDS: FUROSEMIDE 40 MG/4 ML VIAL IV SCH ×2 (11:40→21:15)
[2018-03-06] MEDS: PANTOPRAZOLE 40 MG TABLET PO SCH (11:41)
[2018-03-06 12:00] LABS: ABG Base Excess 11.1 MMOL/L (-2.5-2.5); ABG HCO3 34.9 MMOL/L (20-26); ABG PCO2 36.6 MM HG (35-48); ABG PH 7.577 (7.35-7.45); ABG TCO2 30.7 MMOL/L (23-27); Pt O2 Delivery Device Ventilator
[2018-03-06] MEDS: POTASSIUM CHLORIDE RIDER 10 MEQ in PREMIX 1 EACH IV PRN (16:15)
[2018-03-06] MEDS: RIVAROXABAN 20 MG TABLET PO SCH (19:42)
[2018-03-07] MEDS: NOREPINEPHRINE 8 MG in SODIUM CHLORIDE 0.9% 242 ML IV PRN ×2 (00:01→12:02)
[2018-03-07] MEDS: POTASSIUM CHLORIDE RIDER 20 MEQ in PREMIX 1 EACH IV PRN ×4 (00:22→11:08)
[2018-03-07 02:42] LABS: ABG Base Excess 10.9 MMOL/L (-2.5-2.5); ABG HCO3 34.7 MMOL/L (20-26); ABG PCO2 36.3 MM HG (35-48); ABG PH 7.577 (7.35-7.45); ABG TCO2 30.5 MMOL/L (23-27); Allen Test Positive; Pt O2 Delivery Device Ventilator
[2018-03-07 05:18] LABS: Basophils % 0.4 % (0.0-0.8); Eosinophils # 0.2 10*3/uL (0.0-0.87); Eosinophils % 2.3 % (0.00-10.9); Hematocrit 32.3 VOL% (42.0-52.0); Hemoglobin 9.5 GM/DL (14.0-18.0); Immature Granulocytes % 0.7 %; Immature Granulocytes Absolute 0.06 #; Lymphocytes # 0.8 10*3/uL (1.4-4.0); Lymphocytes % 8.9 % (21.2-54.2); Mean Corpuscular HGB Conc 29.4 GM/DL (32-36); Mean Corpuscular Hemoglobin 22 PG (27-34); Mean Corpuscular Volume 73.6 FL (87-102); Mean Platelet Volume 8.7 FL (9.6-12.0); Monocytes # 0.9 10*3/uL (0.11-0.8); Monocytes % 9.4 % (1.7-12.7); Neutrophils # 7.1 10*3/uL (1.4-7.4); Neutrophils % 78.3 % (38.7-73.9); Platelet Count 299 T/CUMM (130-400); Red Blood Count 4.39 MC/CUMM (3.8-5.5); Red Cell Distribution Width 20.3 % (9.3-17.3); White Blood Count 9.1 T/CUMM (4-12)
[2018-03-07] MEDS: PROPOFOL 1,000 MG/100 ML BOTTLE IV SCH ×5 (05:52→21:19)
[2018-03-07 06:05] LABS: Calcium 8.3 MG/DL (8.5-10.1); Osmolality,Calculated 274.4 MOS/KG (273-304)
[2018-03-07 06:06] LABS: Potassium 2.5 MMOL/L (3.5-5.1)
[2018-03-07] MEDS: LEVOTHYROXINE 25 MCG TABLET PO SCH (06:26)
[2018-03-07] MEDS: LANSOPRAZOLE ODT 30 MG TABLET PER TUBE SCH (08:57)
[2018-03-07] MEDS: metOLazone 5 MG TABLET PO SCH (08:57)
[2018-03-07] MEDS: ASPIRIN CHEW 81 MG TABLET PO SCH (08:57)
[2018-03-07] MEDS: FUROSEMIDE 40 MG/4 ML VIAL IV SCH ×2 (09:05→21:21)
[2018-03-07] MEDS ORDERED: POTASSIUM CHLORIDE 20 MEQ/15 ML UDCUP PER TUBE ONE (09:09)
[2018-03-07] MEDS: ATORVASTATIN 40 MG TABLET PO SCH ×2 (09:15→21:21)
[2018-03-07] MEDS: POTASSIUM CHLORIDE 10 MEQ TABLET PO SCH (11:09)
[2018-03-07] MEDS: RIVAROXABAN 20 MG TABLET PO SCH (17:18)
[2018-03-08] MEDS: PROPOFOL 1,000 MG/100 ML BOTTLE IV SCH ×5 (00:52→20:30)
[2018-03-08] MEDS: NOREPINEPHRINE 8 MG in SODIUM CHLORIDE 0.9% 242 ML IV PRN ×2 (02:42→13:50)
[2018-03-08] MEDS: POTASSIUM CHLORIDE RIDER 20 MEQ in PREMIX 1 EACH IV PRN ×2 (06:02→07:46)
[2018-03-08] MEDS: LEVOTHYROXINE 25 MCG TABLET PO SCH (06:06)
[2018-03-08 06:11] LABS: Basophils % 0.3 % (0.0-0.8); Eosinophils # 0.2 10*3/uL (0.0-0.87); Eosinophils % 1.5 % (0.00-10.9); Hematocrit 32.7 VOL% (42.0-52.0); Hemoglobin 9.7 GM/DL (14.0-18.0); Immature Granulocytes % 0.6 %; Immature Granulocytes Absolute 0.07 #; Lymphocytes # 0.6 10*3/uL (1.4-4.0); Lymphocytes % 5.2 % (21.2-54.2); Mean Corpuscular HGB Conc 29.7 GM/DL (32-36); Mean Corpuscular Hemoglobin 22 PG (27-34); Mean Corpuscular Volume 74.5 FL (87-102); Mean Platelet Volume 8.9 FL (9.6-12.0); Monocytes # 0.8 10*3/uL (0.11-0.8); Monocytes % 6.8 % (1.7-12.7); Neutrophils # 9.6 10*3/uL (1.4-7.4); Neutrophils % 85.6 % (38.7-73.9); Platelet Count 270 T/CUMM (130-400); Red Blood Count 4.39 MC/CUMM (3.8-5.5); Red Cell Distribution Width 20.7 % (9.3-17.3); White Blood Count 11.3 T/CUMM (4-12)
[2018-03-08 06:23] LABS: Calcium 8.4 MG/DL (8.5-10.1); Potassium 3.2 MMOL/L (3.5-5.1)
[2018-03-08 06:26] LABS: Prealbumin 5.6 MG/DL (20-40)
[2018-03-08 07:28] LABS: ABG Base Excess 9.2 MMOL/L (-2.5-2.5); ABG PCO2 38.5 MM HG (35-48); ABG PH 7.535 (7.35-7.45); ABG TCO2 29.2 MMOL/L (23-27); Allen Test Positive; Pt O2 Delivery Device Ventilator
[2018-03-08] MEDS: SPIRONOLACTONE 25 MG TABLET PO SCH ×2 (09:42→20:29)
[2018-03-08] MEDS: metOLazone 5 MG TABLET PO SCH (09:42)
[2018-03-08] MEDS: ASPIRIN CHEW 81 MG TABLET PO SCH (09:42)
[2018-03-08] MEDS: ATORVASTATIN 40 MG TABLET PO SCH ×2 (09:42→20:34)
[2018-03-08] MEDS: LANSOPRAZOLE ODT 30 MG TABLET PER TUBE SCH (09:42)
[2018-03-08] MEDS: FUROSEMIDE 40 MG/4 ML VIAL IV SCH ×2 (09:43→20:29)
[2018-03-08] MEDS: POTASSIUM CHLORIDE 10 MEQ TABLET PO SCH ×2 (09:43→20:29)
[2018-03-08] MEDS: ACETAMINOPHEN 325 MG TABLET PO PRN ×2 (13:24→20:32)
[2018-03-08] MEDS: POTASSIUM CHLORIDE 20 MEQ TABLET PO PRN (13:56)
[2018-03-08] MEDS: RIVAROXABAN 20 MG TABLET PO SCH (16:55)
[2018-03-08] MEDS: ZINC OXIDE PASTE 113 GM TUBE TOP SCH (20:29)
[2018-03-08] MEDS: NOREPINEPHRINE 16 MG in SODIUM CHLORIDE 0.9% 234 ML IV PRN (21:48)
[2018-03-09] MEDS: PROPOFOL 1,000 MG/100 ML BOTTLE IV SCH ×4 (02:38→16:07)
[2018-03-09 03:55] LABS: Basophils % 0.2 % (0.0-0.8); Eosinophils # 0.3 10*3/uL (0.0-0.87); Eosinophils % 2.5 % (0.00-10.9); Hematocrit 34.3 VOL% (42.0-52.0); Hemoglobin 10.1 GM/DL (14.0-18.0); Immature Granulocytes % 0.6 %; Immature Granulocytes Absolute 0.08 #; Lymphocytes # 0.6 10*3/uL (1.4-4.0); Lymphocytes % 4.5 % (21.2-54.2); Mean Corpuscular HGB Conc 29.4 GM/DL (32-36); Mean Corpuscular Hemoglobin 22 PG (27-34); Mean Corpuscular Volume 74.4 FL (87-102); Mean Platelet Volume 9.3 FL (9.6-12.0); Monocytes # 0.9 10*3/uL (0.11-0.8); Monocytes % 7.2 % (1.7-12.7); Neutrophils # 10.6 10*3/uL (1.4-7.4); Platelet Count 266 T/CUMM (130-400); Red Blood Count 4.61 MC/CUMM (3.8-5.5); Red Cell Distribution Width 21.2 % (9.3-17.3); White Blood Count 12.5 T/CUMM (4-12)
[2018-03-09 04:11] LABS: Calcium 8.5 MG/DL (8.5-10.1); Osmolality,Calculated 289.5 MOS/KG (273-304)
[2018-03-09 05:07] LABS: Allen Test Positive; Pt O2 Delivery Device Ventilator
[2018-03-09 05:08] LABS: ABG Base Excess 12.6 MMOL/L (-2.5-2.5); ABG HCO3 35.7 MMOL/L (20-26); ABG Oxygen Saturation 98.1 % (95-100); ABG PH 7.569 (7.35-7.45); ABG PO2 112.1 MM HG (80-95)
[2018-03-09] MEDS: LEVOTHYROXINE 25 MCG TABLET PO SCH (05:43)
[2018-03-09] MEDS: POTASSIUM CHLORIDE 20 MEQ TABLET PO PRN (05:51)
[2018-03-09] MEDS: ACETAMINOPHEN 325 MG TABLET PO PRN (05:51)
[2018-03-09 06:16] LABS: Eosinophils 1 % (0-10); Lymphocytes 1 % (20-55); Platelet Estimate Normal; Polychromasia Few; Segmented Neutrophils 95 % (50-85); Target Cells Few; Total Cells Counted 100
[2018-03-09] MEDS ORDERED: LIDOCAINE 2% 20 ML VIAL RESP TX ONE (06:51)
[2018-03-09] MEDS ORDERED: LIDOCAINE 1% 20 ML VIAL MISC INJ ONE (06:51)
[2018-03-09 07:47] VITALS: BP 119/80
[2018-03-09] MEDS: NOREPINEPHRINE 16 MG in SODIUM CHLORIDE 0.9% 234 ML IV PRN ×3 (08:41→22:30)
[2018-03-09] MEDS: FUROSEMIDE 40 MG/4 ML VIAL IV SCH ×2 (09:30→23:34)
[2018-03-09] MEDS: POTASSIUM CHLORIDE 10 MEQ TABLET PO SCH ×2 (09:30→23:34)
[2018-03-09] MEDS: LANSOPRAZOLE ODT 30 MG TABLET PER TUBE SCH (09:31)
[2018-03-09] MEDS: guaiFENesin/DM ER 600-30 MG TABLET PO PRN (09:31)
[2018-03-09] MEDS: SPIRONOLACTONE 25 MG TABLET PO SCH ×2 (09:31→23:35)
[2018-03-09] MEDS: metOLazone 5 MG TABLET PO SCH (09:31)
[2018-03-09] MEDS: ATORVASTATIN 40 MG TABLET PO SCH ×2 (09:31→23:34)
[2018-03-09] MEDS: HYDROCORTISONE 100 MG VIAL IV SCH ×2 (09:33→23:36)
[2018-03-09] MEDS: CLINDAMYCIN INJ 600 MG in PREMIX 1 EACH IV SCH ×2 (09:39→15:47)
[2018-03-09] MEDS: PIPERACILLIN/TAZOBACTAM 3,375 MG in SODIUM CHLORIDE 0.9% 100 ML IV SCH ×2 (09:39→15:47)
[2018-03-09] MEDS: ZINC OXIDE PASTE 113 GM TUBE TOP SCH ×2 (09:47→23:35)
[2018-03-09] MEDS: ASPIRIN CHEW 81 MG TABLET PO SCH (09:47)
[2018-03-09 11:21] LABS: Apearance,Urine Slightly Hazy (Clear); Bilirubin,Urine Negative (Negative); Blood, Urine Large mg/dL (Negative); Glucose,Urine (UA) Negative (Negative); Hyaline Casts,Urine 4 /LPF (0-3); Ketones,Urine Negative (Negative); Nitrite,Urine Negative (Negative); Protein,Urine 30 MG/DL; RBC,Urine 445 /HPF (0-4); Urine Color Yellow (Yellow); Urine Specific Gravity 1.009 (1.001-1.035); WBC,Urine 5 /HPF (0-6)
[2018-03-09] MEDS: POTASSIUM CHLORIDE RIDER 20 MEQ in PREMIX 1 EACH IV PRN ×2 (13:32→15:36)
[2018-03-09] MEDS ORDERED: AMIODARONE INJ 450 MG in DEXTROSE 5% 241 ML IV SCH ×2 (14:30→20:30)
[2018-03-09] MEDS ORDERED: AMIODARONE INJ 150 MG in DEXTROSE 5% 100 ML IV ONE (14:30)
[2018-03-09] MEDS ORDERED: ACETAMINOPHEN 325 MG/10.15 ML UDCUP PO PRN (15:12)
[2018-03-09] MEDS: ASCORBIC ACID 500 MG TABLET PO SCH ×2 (15:47→23:33)
[2018-03-09] MEDS: RIVAROXABAN 20 MG TABLET PO SCH (16:08)
[2018-03-09] MEDS: POTASSIUM CHLORIDE RIDER 10 MEQ in PREMIX 1 EACH IV PRN (17:40)
[2018-03-09] MEDS ORDERED: PHENYLEPHRINE DRIP 40 MG/250 ML PREMIX IV ONE (19:25)
[2018-03-09] MEDS ORDERED: PHENYLEPHRINE INJ 160 MG in SODIUM CHLORIDE 0.9% 234 ML IV PRN (19:27)
[2018-03-09 19:38] LABS: ABG HCO3 19.8 MMOL/L (20-26); ABG Oxygen Saturation 72.9 % (95-100); ABG PH 7.336 (7.35-7.45); ABG PO2 48.6 MM HG (80-95); ABG TCO2 18.4 MMOL/L (23-27)
[2018-03-09] MEDS ORDERED: DOBUTamine 500 MG/250 ML PREMIX IV ONE (19:41)
[2018-03-09] MEDS ORDERED: SODIUM BICARBONATE 50 MEQ/50 ML SYRINGE IV ONE (19:44)
[2018-03-09] MEDS ORDERED: EPINEPHrine 1 MG/ML VIAL ONE (19:45)
[2018-03-09] MEDS ORDERED: EPINEPHrine 1 MG/10 ML SYRINGE IV ONE (19:45)
[2018-03-09] MEDS ORDERED: LACTATED RINGERS 1,000 ML IV ONE (19:52)
[2018-03-09 20:37] LABS: Alanine Aminotransferase 29 U/L (16-61); Alkaline Phosphatase 99 U/L (45-117); Aspartate Amino Transferase 125 U/L (0-37); Blood Urea Nitrogen 51 MG/DL (7-18); Calcium 8.2 MG/DL (8.5-10.1); Osmolality,Calculated 289.3 MOS/KG (273-304); Potassium 4.9 MMOL/L (3.5-5.1); Sodium 141 MMOL/L (136-145); Total Protein 6.9 G/DL (6.4-8.3)
[2018-03-09] MEDS ORDERED: DEXTROSE 50% 25 GM/50 ML SYRINGE IV ONE ×2 (20:40→20:42)
[2018-03-09 20:41] LABS: Glucose 7 MG/DL (74-106)
[2018-03-09] MEDS ORDERED: DEXTROSE 50% 25 GM/50 ML SYRINGE IV PRN (20:45)
[2018-03-09 20:51] LABS: Lactic Acid 16.2 MMOL/L (0.4-2.0)
[2018-03-09] MEDS: SODIUM BICARB INJ 50 MEQ in DEXTROSE 5% NACL 0.45% 1,000 ML IV SCH (20:52)
[2018-03-09 20:53] LABS: INR 2.8; Partial Thromboplastin Time 40.8 SECS (0-40)
[2018-03-09 20:56] LABS: PT Patient Result 30.2 SECS
[2018-03-09] MEDS ORDERED: POTASSIUM CHLORIDE 20 MEQ/15 ML UDCUP PER TUBE SCH (21:00)
[2018-03-09] MEDS ORDERED: ACETAMINOPHEN 650 MG SUPP RECTAL PRN (21:02)
[2018-03-09] MEDS ORDERED: ACETAMINOPHEN 650 MG SUPP RECTAL ONE (21:03)
[2018-03-09 21:24] LABS: Basophils % 0.2 % (0.0-0.8); Eosinophils % 0.2 % (0.00-10.9); Hematocrit 37.2 VOL% (42.0-52.0); Immature Granulocytes % 2.2 %; Immature Granulocytes Absolute 0.21 #; Lymphocytes # 0.8 10*3/uL (1.4-4.0); Mean Corpuscular HGB Conc 28.2 GM/DL (32-36); Mean Corpuscular Hemoglobin 22 PG (27-34); Mean Platelet Volume 9.5 FL (9.6-12.0); Monocytes # 0.2 10*3/uL (0.11-0.8); Monocytes % 2.1 % (1.7-12.7); NRBC # 0.16 10*3/uL; Neutrophils # 8.4 10*3/uL (1.4-7.4); Neutrophils % 87.3 % (38.7-73.9); Red Blood Count 4.77 MC/CUMM (3.8-5.5); Red Cell Distribution Width 21.7 % (9.3-17.3); White Blood Count 9.6 T/CUMM (4-12)
[2018-03-09 21:27] LABS: Hemoglobin 10.5 GM/DL (14.0-18.0); Platelet Count 201 T/CUMM (130-400)
[2018-03-09 21:52] LABS: Platelet Estimate Adequate
[2018-03-09 21:53] LABS: Anisocytosis 1+; Hypochromasia 1+
[2018-03-09 21:54] LABS: Polychromasia Few
[2018-03-09 21:55] LABS: Acanthocytes Few; Elliptocytes Few
[2018-03-10] MEDS: PROPOFOL 1,000 MG/100 ML BOTTLE IV SCH (04:06)
[2018-03-10] MEDS: SODIUM BICARB INJ 50 MEQ in DEXTROSE 5% NACL 0.45% 1,000 ML IV SCH (04:27)
[2018-03-10] MEDS: PIPERACILLIN/TAZOBACTAM 3,375 MG in SODIUM CHLORIDE 0.9% 100 ML IV SCH (04:28)
[2018-03-10] MEDS: CLINDAMYCIN INJ 600 MG in PREMIX 1 EACH IV SCH (04:29)
== END 2018-03-09 23:21 | disposition expired | DRG 291 ==
LOC: EDBD → EDUNIT# → N.ED 10:21 → N.EDINP 11:40 → N.TELES 12:56 → N.CC 03-06 00:19
PROVIDERS: ADMIT Internal Medicine Cardiovascular Disease; ATTEND Internal Medicine Cardiovascular Disease